=== PATIENT | female | born 1950 | race Caucasian/White ===

== ENCOUNTER → 2024-07-24 11:36 | Outpatient (REF) | payer MEDICARE, OTHER, SELFPAY | LOC: RAD 11:36 | PROVIDERS: ATTENDING PHYSICIAN Orthopaedic Surgery Hand Surgery; FAMILY PHYSICIAN Family Medicine | DX: M25.512 Pain in left shoulder (principal) | CPT/HCPCS: 73200 ==

== ENCOUNTER → 2024-10-07 10:30 | Outpatient (REF) | payer MEDICARE, OTHER, SELFPAY ==
[2024-09-23 15:02] LABS: Hematocrit 38.5 % (37.0-47.0); Hemoglobin 12.6 g/dL (12.0-16.0); Mean Corp Hgb Conc. 32.7 g/dL (33.0-37.0); Mean Corpuscular Hgb 29.2 pg (27.0-31.0); Mean Corpuscular Volume 89.3 fL (81.0-99.0); Mean Platelet Volume 13.5 fL (7.4-10.4); Platelet Count 148 10^3/uL (130-400); Red Blood Cell Count 4.31 10^6/uL (4.20-5.40); White Blood Cell Count 6.5 10^3/uL (4.8-10.8)
[2024-09-23 15:27] LABS: ALT (SGPT) 23 U/L (0-35); AST (SGOT) 33 U/L (14-36); Albumin 3.4 g/dl (3.5-5.0); Alkaline Phosphatase 129 U/L (38-126); Blood Urea Nitrogen 23 mg/dl (7-17); Calcium 9.4 mg/dl (8.4-10.2); Carbon Dioxide 23 mmol/L (22-30); Chloride 102 mmol/L (98-107); Glucose 128 mg/dl (70-99); Potassium 4.1 mmol/L (3.5-5.1); Sodium 138 mmol/L (135-145); Total Bilirubin 0.3 mg/dl (0.2-1.3); Total Protein 6.3 g/dl (6.3-8.2); eGFR > 60.00
[2024-09-24 10:19] LABS: Glycohemoglobin (HgbA1c) 6.4 % (4.0-5.6)
[2024-10-07 10:45] VITALS: BMI 37.0
--- NOTE | 2024-10-07 16:09 | CM ---
TC from admissions re upcoming surgery.
Patient is currently at [facility] and will be coming to the hospital for surgery, post surgery the plan is home with spouse.
Spoke with BERNARD from [facility], [place], she is working with the patient and spouse to transition the patient to home.
[phone]. They are currently working on transitioning from facility to [facility] waiver. Per [place] waiver services may not be completed by the time patient is
dc from the hospital but it should not stop her d/c to home. They started the process in June, so hopefully it will be completed prior to d/c.
Per [place] patient lives with spouse and 2 daughters with special needs, spouse has recently purchased a handicap accessible van.
== END ==
LOC: REG 10:30
PROVIDERS: ATTENDING PHYSICIAN Orthopaedic Surgery Hand Surgery; FAMILY PHYSICIAN Family Medicine; REFERRING PHYSICIAN Internal Medicine Hypertension Specialist
DX: M19.012 Primary osteoarthritis, left shoulder (principal); Z01.818 Encounter for other preprocedural examination
CPT/HCPCS: 36415; 80053; 83036; 85027; 87070; 87147